=== PATIENT | female | born 1980 | race African-American/Black ===

== ENCOUNTER 2016-07-16 07:48 | Emergency (ER) | payer OTHER ==
[~2016-07-16] VITALS: Ht 152.4 cm; Wt 60.0 kg
[2016-07-16] MEDS ORDERED: LORAZEPAM 1MG TABLET PO ONE (11:30)
[2016-07-16 12:01] LABS: BASOPHILS % 0.6 % (0.0-2.0); EOSINOPHILS % 1.8 % (0.0-5.0); HEMATOCRIT. 36.2 % (36.0-48.0); HEMOGLOBIN. 12.1 g/dL (12.0-16.0); LYMPHOCYTES % 25.6 % (20.0-50.0); MEAN CORPUSCULAR HEMOGLOBIN 30.3 pg (28.0-32.0); MEAN CORPUSCULAR HGB CONC 33.5 g/dL (31.0-37.0); MEAN CORPUSCULAR VOLUME 90.2 fL (81.0-99.0); MEAN PLATELET VOLUME 8.3 fl (7.4-10.4); MONOCYTES % 6.2 % (2.0-8.0); NEUTROPHILS % 65.8 % (40.0-76.0); PLATELET 196 x1000/uL (130-400); RED BLOOD CELL COUNT 4.01 mill/uL (4.2-5.4); RED CELL DISTRIBUTION WIDTH 13.1 % (11.6-14.6)
[2016-07-16 12:11] LABS: ALBUMIN 3.7 g/dL (3.4-5.0); ANION GAP 9; CALCIUM 8.7 mg/dL (8.5-10.1); CARBON DIOXIDE 27 mEq/L (21-32); CHLORIDE 106 mEq/L (98-107); INDEX HEMOLYSI 1 (1-3); INDEX ICTERIC 1 (1-4); INDEX LIPEMIC 1 (1-3); UREA NITROGEN BLOOD 13 mg/dL (7-21)
[2016-07-16 12:16] LABS: ALANINE AMINOTRANSFERASE 14 IU/L (13-61); eGFR > 60 mL/min (>60)
[2016-07-16 13:02] LABS: GLUCOSE URINE NEGATIVE (NEGATIVE); KETONES URINE NEGATIVE (NEGATIVE); LEUKOCYTE ESTERASE URINE 1+ (NEGATIVE); NITRITE URINE POSITIVE (NEGATIVE); OCCULT BLOOD URINE NEGATIVE (NEGATIVE); PH URINE 6.5 (4.5-8.0); PROTEIN URINE NEGATIVE (NEGATIVE); SPECIFIC GRAVITY URINE 1.024 (1.005-1.030); UROBILINOGEN URINE 0.2 E.U./dL (0.2-1.0)
[2016-07-16 13:07] LABS: CLARITY URINE CLOUDY (CLEAR); COLOR URINE YELLOW (YELLOW)
[2016-07-16 13:20] LABS: BACTERIA URINE 3+; RBC URINE 0-2 /hpf (0-2); SQUAMOUS EPITHELIAL CELL URINE FEW /lpf (RARE/1+)
[2016-07-16 14:12] VITALS: BP 127/79
== END 2016-07-16 14:16 | disposition home or self-care (01) ==
LOC: ER 08:40
DX: F41.9 Anxiety disorder, unspecified (principal); N39.0 Urinary tract infection, site not specified; F32.9 Major depressive disorder, single episode, unspecified; F17.210 Nicotine dependence, cigarettes, uncomplicated; F12.10 Cannabis abuse, uncomplicated; M54.30 Sciatica, unspecified side; Z98.890 Other specified postprocedural states
CPT/HCPCS: 36415; 80053; 81001; 81025; 85025; 99284; Z7610

== ENCOUNTER 2016-08-26 09:40 | Emergency (ER) | payer MEDICAID, OTHER ==
[~2016-08-26] VITALS: Ht 162.6 cm; Wt 52.0 kg
[2016-08-26] MEDS ORDERED: IBUPROFEN 600MG TABLET PO ONE (11:15)
[2016-08-26 11:43] VITALS: BP 123/86
== END 2016-08-26 12:12 | disposition home or self-care (01) ==
LOC: ER 09:41
DX: M25.511 Pain in right shoulder (principal); R51 Headache; F41.9 Anxiety disorder, unspecified; F32.9 Major depressive disorder, single episode, unspecified; M54.30 Sciatica, unspecified side; Z98.890 Other specified postprocedural states; F17.210 Nicotine dependence, cigarettes, uncomplicated; F12.10 Cannabis abuse, uncomplicated; Z88.6 Allergy status to analgesic agent; W22.8XXA Striking against or struck by other objects, initial encounter; Y93.89 Activity, other specified; Y92.89 Other specified places as the place of occurrence of the external cause; Y99.8 Other external cause status
CPT/HCPCS: 73030; 81025; 99284

== ENCOUNTER 2016-08-27 09:55 | Emergency (ER) | payer MEDICAID, OTHER | END 2016-08-27 14:54 | disposition left against medical advice (07) | LOC: ER 14:10 | DX: Z53.21 Procedure and treatment not carried out due to patient leaving prior to being seen by health care provider (principal) ==

== ENCOUNTER 2016-08-29 00:49 | Emergency (ER) | payer MEDICAID ==
[~2016-08-29] VITALS: Ht 162.6 cm; Wt 53.0 kg
[2016-08-29 01:28] VITALS: BP 101/65
[2016-08-29] MEDS ORDERED: KETOROLAC 60MG/2ML VIAL IM ONE (02:00)
== END 2016-08-29 03:13 | disposition home or self-care (01) ==
LOC: ER 00:49
DX: M79.1 Myalgia (principal); F12.10 Cannabis abuse, uncomplicated; F17.200 Nicotine dependence, unspecified, uncomplicated; Z88.5 Allergy status to narcotic agent
CPT/HCPCS: 81025; 96372; 99283; J1885

== ENCOUNTER 2016-09-04 11:36 | Emergency (ER) | payer MEDICAID, OTHER ==
[~2016-09-04] VITALS: Ht 162.6 cm; Wt 53.0 kg
[2016-09-04 12:09] VITALS: BP 124/83
== END 2016-09-04 15:36 | disposition left against medical advice (07) ==
LOC: ER 15:29
DX: Z53.21 Procedure and treatment not carried out due to patient leaving prior to being seen by health care provider (principal)

== ENCOUNTER 2016-09-15 11:47 | Emergency (ER) | payer MEDICAID, OTHER ==
[~2016-09-15] VITALS: Ht 165.1 cm; Wt 52.0 kg
[2016-09-15] MEDS ORDERED: KETOROLAC 60MG/2ML VIAL IM ONE (15:15)
[2016-09-15 15:53] VITALS: BP 119/64
== END 2016-09-15 16:53 | disposition home or self-care (01) ==
LOC: ER 15:33
DX: H60.92 Unspecified otitis externa, left ear (principal); M79.1 Myalgia; F17.210 Nicotine dependence, cigarettes, uncomplicated; F12.10 Cannabis abuse, uncomplicated; Z98.890 Other specified postprocedural states; Z88.6 Allergy status to analgesic agent; W22.8XXA Striking against or struck by other objects, initial encounter; Y93.89 Activity, other specified; Y92.89 Other specified places as the place of occurrence of the external cause
CPT/HCPCS: 96372; 99283; J1885

== ENCOUNTER 2016-09-17 04:43 | Emergency (ER) | payer MEDICAID, OTHER ==
[~2016-09-17] VITALS: Ht 162.6 cm; Wt 52.0 kg
[2016-09-17] MEDS ORDERED: LIDOCAINE HCL 1% 20ML VIAL (Pyxis) INJ INFIL ONE (09:15)
[2016-09-17] MEDS ORDERED: CEFTRIAXONE SODIUM 250 MG/VIAL IM ONE (09:15)
[2016-09-17] MEDS ORDERED: KETOROLAC 60MG/2ML VIAL IM ONE (09:15)
[2016-09-17 10:19] VITALS: BP 129/85
== END 2016-09-17 10:21 | disposition home or self-care (01) ==
LOC: ER 04:43
DX: H60.92 Unspecified otitis externa, left ear (principal); H60.12 Cellulitis of left external ear; F17.210 Nicotine dependence, cigarettes, uncomplicated; F12.10 Cannabis abuse, uncomplicated; Z88.5 Allergy status to narcotic agent
CPT/HCPCS: 96372; 99284; J0696; J1885; J3490

== ENCOUNTER 2016-10-06 17:18 | Emergency (ER) | payer MEDICAID, OTHER ==
[~2016-10-06] VITALS: Ht 160 cm; Wt 54.0 kg
[2016-10-06] MEDS ORDERED: BACITRACIN ZINC OINT UDPKT TOP ONE (18:45)
[2016-10-06] MEDS ORDERED: KETOROLAC 60MG/2ML VIAL IM ONE (21:00)
[2016-10-06 23:13] VITALS: BP 125/75
== END 2016-10-06 23:26 | disposition home or self-care (01) ==
LOC: ER 17:18
DX: S00.81XA Abrasion of other part of head, initial encounter (principal); S16.1XXA Strain of muscle, fascia and tendon at neck level, initial encounter; S00.83XA Contusion of other part of head, initial encounter; F12.10 Cannabis abuse, uncomplicated; F41.9 Anxiety disorder, unspecified; Z98.890 Other specified postprocedural states; Z88.6 Allergy status to analgesic agent; V43.52XA Car driver injured in collision with other type car in traffic accident, initial encounter; Y93.89 Activity, other specified; Y92.488 Other paved roadways as the place of occurrence of the external cause
CPT/HCPCS: 70140; 70486; 81025; 96372; 99284; J1885; Z7610

== ENCOUNTER 2017-02-13 22:29 | Emergency (ER) | payer SELFPAY ==
[~2017-02-13] VITALS: Ht 162.6 cm; Wt 53.0 kg
[2017-02-13] MEDS ORDERED: CARBAMIDE PEROXIDE 6.5% OTIC SOLN 15ML RIGHT EAR ONE (23:30)
[2017-02-13] MEDS ORDERED: IBUPROFEN 400MG TABLET PO ONE (23:30)
[2017-02-13 23:54] VITALS: BP 127/81
== END 2017-02-14 00:12 | disposition home or self-care (01) ==
LOC: ER 22:29
DX: H92.01 Otalgia, right ear (principal); F17.200 Nicotine dependence, unspecified, uncomplicated; F12.10 Cannabis abuse, uncomplicated
CPT/HCPCS: 99283

== ENCOUNTER 2021-06-05 14:07 | Emergency (ER) | payer MEDICAID ==
[~2021-06-05] VITALS: Ht 167.6 cm; Wt 65.0 kg
[2021-06-05] MEDS ORDERED: KETOROLAC 60MG/2ML VIAL IM ONE (14:45)
[2021-06-05] MEDS ORDERED: IBUP-2029 MT (15:33)
[2021-06-05] MEDS ORDERED: METH-653 MT (15:33)
[2021-06-05 16:42] VITALS: BP 137/76
== END 2021-06-05 16:43 | disposition home or self-care (01) ==
LOC: ER 14:07
DX: M25.551 Pain in right hip (principal); Z98.890 Other specified postprocedural states; Z88.5 Allergy status to narcotic agent
CPT/HCPCS: 73502; 96372; 99283; J1885

== ENCOUNTER 2021-11-27 15:12 | Emergency (ER) | payer MEDICAID, OTHER ==
[~2021-11-27] VITALS: Ht 167.6 cm; Wt 60.0 kg
[~2021-11-27 15:12] MED LIST: IBUP-2029 MT; METH-653 MT
[2021-11-27 15:17] VITALS: BP 121/79
== END 2021-11-27 17:03 | disposition left against medical advice (07) ==
LOC: ER 15:12
DX: Z53.21 Procedure and treatment not carried out due to patient leaving prior to being seen by health care provider (principal)

== ENCOUNTER 2023-06-06 17:01 | Emergency (ER) | payer MEDICAID ==
[~2023-06-06] VITALS: Ht 162.6 cm; Wt 56.8 kg
[2023-06-06 17:26] VITALS: O2SAT 100
[2023-06-06] MEDS: IBUPROFEN 400MG TABLET PO ONE (18:19)
[2023-06-06 18:40] VITALS: BP 124/80; PULSE 70; RESP 18; TEMP 98.5
== END 2023-06-06 18:40 | disposition home or self-care (01) ==
LOC: ER 17:01
DX: M25.511 Pain in right shoulder (principal); F12.10 Cannabis abuse, uncomplicated
CPT/HCPCS: 73030; 81025; 99283